=== PATIENT | female | born 1950 | race Caucasian/White ===

== ENCOUNTER 2023-03-21 13:35 | Outpatient (AMB) | payer MEDICARE, SELFPAY ==
--- NOTE | 2023-03-21 13:45 | AM.OFFWIN_ITS ---
Intake Vital Signs 03/21/23 13:59 Height 5 ft 1 in Weight 141 lb BMI 26.6 BP 150/78 H Blood Pressure Location Lt brachial Position Sitting Pulse 98 Pulse Source Pulse Oximeter Temp 98.1 F Temp Source Temporal Artery Scan Pulse Oximetry (%) 96 Oxygen Delivery Method Room Air Intake Visit Reasons: [employer]/ difficulty swallowing (lobby) Intake Note: pt is here today for difficulty swallowing started 3 days ago Patient Tobacco Use Status: Never used Tobacco Allergies No Known Allergies Allergy (Verified 03/21/23 14:02) Do you need a note to return to daycare/school/sports/work: Yes HPI [employer]/ difficulty swallowing (lobby) HPI Details This is a 72-year-old female patient who presents today to the walk-in clinic for a 3 day history of sore throat. Reports some pain full swallowing and scratchiness of throat. Denies any other sick symptoms. Denies any fever, chills, shortness of breath, cough. Her son was recently ill with upper respiratory symptoms, however he did not have any pharyngitis. Is tolerating food and fluids well. [facility] Social History Patient Tobacco Use Status: Never used Tobacco Review of Systems Const All systems reviewed & are unremarkable except as noted in HPI and below Physical Exam Const General: cooperative, comfortable and no acute distress HEENT Head: Yes normal to inspection Ears: hearing grossly normal bilaterally General nose exam: Normal external nose present and Normal nasal mucous membranes and turbinates present Mouth: Normal oral and palatal mucosa present Throat: Yes posterior oropharynx normal (mild erythema), Yes tonsils normal and Yes uvula midline Neck Neck: Yes no lymphadenopathy Resp Effort & Inspection: normal respiratory effort and able to speak in complete sentences Auscultation: clear to auscultation bilaterally Cardio Palpation: normal PMI Rate: regular rate Rhythm: regular rhythm Skin General skin exam: no rashes or lesions noted Extrem General: Yes capillary refill normal and Yes no clubbing, cyanosis or edema Psych Appearance: grossly normal Mental Status: mental status grossly normal Speech and movement: Normal speech and movement present Results AMB Rapid Strep AMB Rapid Strep Negative Last Edit by Yaw Daigle CMA on 03/21/23 14 :21 Assessment & Plan Assessment & Plan (1) Acute viral pharyngitis: Code(s): J02.9 - Acute pharyngitis, unspecified Plan: Rapid strep in the office was negative. Likely a viral pharyngitis. Advised Tylenol/Motrin, throat lozenges/sprays, warm salt-water gargles, and tea with honey for symptomatic treatment. Advised to return to the clinic if she does not improve with time and conservative measures, or new symptoms develop. Patient and son present at visit verbalize understanding and agree to plan. Coding Level of Care Code Est Pt Level 3 (78365) Diagnoses Acute viral pharyngitis J02.9
[2023-03-21 13:59] VITALS: BP 150/78; PULSE 98; TEMP 36.7; O2SAT 96; BMI 26.6
== END 2023-03-21 14:24 | disposition home or self-care (01) ==
PROVIDERS: PCP Internal Medicine; Visit Provider Nurse Practitioner Family
DX: J02.9 Acute pharyngitis, unspecified (principal)
CPT/HCPCS: 87880; 99213